=== PATIENT | female | born 1950 | race Caucasian/White ===

== ENCOUNTER 2021-03-29 15:57 | Inpatient (IN) | payer MEDICARE, BC ==
[2021-03-29 16:03] VITALS: BMI 29.3
[2021-03-29] MEDS ORDERED: Calcium Carbonate 500 MG ChewTAB PO PRN (17:19)
[2021-03-29] MEDS ORDERED: Acetaminophen 325 MG TAB PO PRN (17:19)
[2021-03-29] MEDS ORDERED: Zolpidem Tartrate 5 MG TAB PO PRN (17:19)
[2021-03-29] MEDS ORDERED: Piperacillin/Tazobactam 3.375 GM in Sodium Chloride 0.9% 100 ML IVPB SCH ×2 (18:00→19:00)
[2021-03-29] MEDS: traMADol HCl 50 MG TAB PO PRN (18:25)
[2021-03-29] MEDS: Vancomycin 1.5 GRAM/300 ML BAG 1.5 GM in Premix Bag 1 BAG IVPB SCH (20:16)
[2021-03-29] MEDS: Famotidine 20 MG TAB PO SCH (20:20)
[2021-03-29] MEDS ORDERED: Sodium Chloride 0.9% 100 ML ONE (23:54)
[2021-03-29] MEDS: Piperacillin/Tazobactam 3.375 GM in Sodium Chloride 0.9% 100 ML IVPB SCH (23:58)
[2021-03-30] MEDS: traMADol HCl 50 MG TAB PO PRN ×3 (04:25→15:57)
[2021-03-30] MEDS: Piperacillin/Tazobactam 3.375 GM in Sodium Chloride 0.9% 100 ML IVPB SCH ×2 (06:31→15:50)
[2021-03-30] MEDS: metFORMIN 500 MG TAB PO SCH ×2 (10:47→15:57)
[2021-03-30] MEDS: Amlodipine 5 MG TAB PO SCH (10:47)
[2021-03-30] MEDS: Famotidine 20 MG TAB PO SCH ×2 (10:48→21:26)
[2021-03-30] MEDS: Lisinopril 20 MG TAB PO SCH (10:48)
[2021-03-30] MEDS: Enoxaparin Sodium 30 MG/0.3 ML SYRINGE SC SCH (10:50)
[2021-03-30] MEDS: Fluticasone Propionate Nasal Spray 16 gm Bottle NASAL SCH (13:43)
[2021-03-30 14:29] LABS: SARS-CoV-2 PCR by NAA Not Detected (NotDetected)
[2021-03-30 17:19] LABS: #Eosinphils 0.3 10x3/uL (0.0-0.5); #Monocytes 0.5 10x3/uL (0.0-1.1); #Neutrophils 4.6 10x3/uL (1.5-8.4); %Basophils 0.6 % (0.0-2.0); %Eosinophils 4.6 % (0.0-6.0); %Lymphocytes 16.9 % (18.0-47.0); %Monocytes 7.3 % (0.0-10.0); %Neutrophils 70.1 % (40.0-75.0); Hemoglobin 11.2 g/dL (12.0-15.5); Mean Corpuscular HGB CONC 31.8 g/dL (32.0-36.0); Mean Corpuscular Hemoglobin 29.5 pg (27.0-33.0); Mean Corpuscular Volume 92.6 fl (81.6-98.3); Mean Platelet Volume 9.8 fl (7.4-10.4); Platelet Count 206 10x3/uL (150-450); RBC Distribution Width 12.9 % (11.5-14.5); White Blood Cell (WBC) Count 6.6 10x3/uL (3.5-10.5)
[2021-03-30] MEDS: diphenhydrAMINE 25 MG CAP PO PRN (18:02)
[2021-03-30] MEDS: Vancomycin 1.5 GRAM/300 ML BAG 1.5 GM in Premix Bag 1 BAG IVPB SCH (21:25)
[2021-03-30] MEDS: Clindamycin/D5W 900 MG in Premix Bag 1 BAG IVPB SCH (23:09)
[2021-03-31] MEDS: Clindamycin/D5W 900 MG in Premix Bag 1 BAG IVPB SCH ×3 (06:14→22:35)
[2021-03-31] MEDS ORDERED: Fentanyl 100 MCG/2 ML VIAL ONE ×2 (08:16→09:59)
[2021-03-31] MEDS ORDERED: Midazolam HCl 2 mg/2 ml Vial ONE (08:16)
[2021-03-31] MEDS ORDERED: PROPOFOL 20 ML ONE (08:16)
[2021-03-31] MEDS ORDERED: Ondansetron PF 4 MG/2 ML Vial ONE (08:18)
[2021-03-31] MEDS ORDERED: Dexamethasone 20 MG/5 ML VIAL ONE (08:18)
[2021-03-31] MEDS ORDERED: Lidocaine 1% PF 5 ML VIAL ONE (08:18)
[2021-03-31] MEDS ORDERED: Promethazine HCl 25 MG/ML VIAL IM PRN (09:20)
[2021-03-31] MEDS ORDERED: Ondansetron HCl/PF 4 MG/2 ML Vial IVP PRN (09:20)
[2021-03-31] MEDS ORDERED: Promethazine HCl 25 MG/ML VIAL IVPB PRN (09:20)
[2021-03-31] MEDS ORDERED: ePHEDrine Sulfate 50 MG/10 ML VIAL ONE (09:28)
[2021-03-31] MEDS: metFORMIN 500 MG TAB PO SCH ×2 (10:56→15:41)
[2021-03-31] MEDS: Famotidine 20 MG TAB PO SCH ×2 (10:56→20:40)
[2021-03-31] MEDS: Amlodipine 5 MG TAB PO SCH (10:56)
[2021-03-31] MEDS: Enoxaparin Sodium 30 MG/0.3 ML SYRINGE SC SCH (10:57)
[2021-03-31] MEDS: Fluticasone Propionate Nasal Spray 16 gm Bottle NASAL SCH (10:58)
[2021-03-31] MEDS: Lisinopril 20 MG TAB PO SCH (10:58)
[2021-03-31] MEDS: traMADol HCl 50 MG TAB PO PRN ×2 (16:37→20:48)
[2021-03-31] MEDS: Vancomycin 1.5 GRAM/300 ML BAG 1.5 GM in Premix Bag 1 BAG IVPB SCH (20:40)
[2021-04-01] MEDS: Clindamycin/D5W 900 MG in Premix Bag 1 BAG IVPB SCH ×3 (05:45→23:13)
[2021-04-01] MEDS: traMADol HCl 50 MG TAB PO PRN (06:11)
[2021-04-01] MEDS: Famotidine 20 MG TAB PO SCH ×2 (08:50→20:19)
[2021-04-01] MEDS: Lisinopril 20 MG TAB PO SCH (08:50)
[2021-04-01] MEDS: Fluticasone Propionate Nasal Spray 16 gm Bottle NASAL SCH (08:51)
[2021-04-01] MEDS: Enoxaparin Sodium 30 MG/0.3 ML SYRINGE SC SCH (08:51)
[2021-04-01] MEDS: Amlodipine 5 MG TAB PO SCH (08:51)
[2021-04-01] MEDS: metFORMIN 500 MG TAB PO SCH ×2 (08:51→15:37)
[2021-04-01] MEDS: diphenhydrAMINE 25 MG CAP PO PRN (20:19)
[2021-04-01] MEDS: VANCOMYCIN 1.75 GM/350 ML BAG 1.75 GM in Premix Bag 1 BAG IVPB SCH ×2 (20:21→20:25)
[2021-04-02] MEDS: Clindamycin/D5W 900 MG in Premix Bag 1 BAG IVPB SCH ×3 (05:46→22:48)
[2021-04-02] MEDS: Lisinopril 20 MG TAB PO SCH (10:05)
[2021-04-02] MEDS: Amlodipine 5 MG TAB PO SCH (10:05)
[2021-04-02] MEDS: metFORMIN 500 MG TAB PO SCH ×2 (10:05→17:58)
[2021-04-02] MEDS: Enoxaparin Sodium 30 MG/0.3 ML SYRINGE SC SCH (10:05)
[2021-04-02] MEDS: Famotidine 20 MG TAB PO SCH ×2 (10:05→20:19)
[2021-04-02] MEDS: Fluticasone Propionate Nasal Spray 16 gm Bottle NASAL SCH (10:06)
[2021-04-02] MEDS: traMADol HCl 50 MG TAB PO PRN (14:21)
[2021-04-02] MEDS: VANCOMYCIN 1.75 GM/350 ML BAG 1.75 GM in Premix Bag 1 BAG IVPB SCH (20:19)
[2021-04-02] MEDS: diphenhydrAMINE 25 MG CAP PO PRN (20:29)
[2021-04-03] MEDS: Clindamycin/D5W 900 MG in Premix Bag 1 BAG IVPB SCH ×3 (05:51→21:24)
[2021-04-03] MEDS: traMADol HCl 50 MG TAB PO PRN ×2 (11:34→23:49)
[2021-04-03] MEDS: metFORMIN 500 MG TAB PO SCH ×2 (11:34→18:06)
[2021-04-03] MEDS: Amlodipine 5 MG TAB PO SCH (11:35)
[2021-04-03] MEDS: Lisinopril 20 MG TAB PO SCH (11:35)
[2021-04-03] MEDS: Famotidine 20 MG TAB PO SCH ×2 (11:36→21:23)
[2021-04-03] MEDS: Fluticasone Propionate Nasal Spray 16 gm Bottle NASAL SCH (11:37)
[2021-04-03] MEDS: Enoxaparin Sodium 30 MG/0.3 ML SYRINGE SC SCH (11:37)
[2021-04-03 19:18] LABS: Vancomycin, Trough 15.9 ug/mL
[2021-04-03] MEDS ORDERED: Vancomycin 1.5 GRAM/300 ML BAG 1.5 GM in Premix Bag 1 BAG IVPB SCH (21:00)
[2021-04-03] MEDS: diphenhydrAMINE 25 MG CAP PO PRN (21:23)
[2021-04-03] MEDS: VANCOMYCIN 1.75 GM/350 ML BAG 1.75 GM in Premix Bag 1 BAG IVPB SCH (21:38)
[2021-04-04] MEDS: Clindamycin/D5W 900 MG in Premix Bag 1 BAG IVPB SCH (06:01)
[2021-04-04] MEDS: Lisinopril 20 MG TAB PO SCH (08:51)
[2021-04-04] MEDS: metFORMIN 500 MG TAB PO SCH (08:52)
[2021-04-04] MEDS: Amlodipine 5 MG TAB PO SCH (08:52)
[2021-04-04] MEDS: Famotidine 20 MG TAB PO SCH (08:53)
[2021-04-04 08:56] VITALS: BP 110/68
[2021-04-04] MEDS: Fluticasone Propionate Nasal Spray 16 gm Bottle NASAL SCH (09:51)
[2021-04-04] MEDS: Enoxaparin Sodium 30 MG/0.3 ML SYRINGE SC SCH (09:51)
[2021-04-04 12:21] VITALS: TEMP 97.1
== END 2021-04-04 12:25 | disposition home or self-care (01) | DRG 580 ==
LOC: CSHTELE 15:57
PROVIDERS: ADMIT Obstetrics & Gynecology; ATTEND Obstetrics & Gynecology
PROC: 0U9M0ZZ Drainage of Vulva, Open Approach (ICD-10-PCS; principal; 2021-03-31)
DX: L73.2 Hidradenitis suppurativa (principal); N76.4 Abscess of vulva; Z20.822 Contact with and (suspected) exposure to COVID-19; E11.628 Type 2 diabetes mellitus with other skin complications; L02.31 Cutaneous abscess of buttock; L03.317 Cellulitis of buttock; I10 Essential (primary) hypertension; N76.2 Acute vulvitis; K21.9 Gastro-esophageal reflux disease without esophagitis; E78.5 Hyperlipidemia, unspecified; Z88.8 Allergy status to other drugs, medicaments and biological substances; Z79.82 Long term (current) use of aspirin; Z79.899 Other long term (current) drug therapy
CPT/HCPCS: 36415; 36416; 80202; 82565; 84520; 85025; 87070; 87205; J1100; J1650; J2250; J2405; J2543; J2704; J3010; J3370; J3490; U0003; U0005

== ENCOUNTER 2021-05-31 14:32 | Inpatient (IN) | payer MEDICARE, BC ==
[2021-05-31] MEDS ORDERED: Piperacillin/Tazobactam 3.375 GM VIAL ONE (17:44)
[2021-05-31 17:51] LABS: #Eosinphils 0.2 10x3/uL (0.0-0.5); #Monocytes 0.9 10x3/uL (0.0-1.1); #Neutrophils 7.8 10x3/uL (1.5-8.4); %Basophils 0.4 % (0.0-2.0); %Eosinophils 2.1 % (0.0-6.0); %Lymphocytes 15.8 % (18.0-47.0); %Monocytes 8.2 % (0.0-10.0); %Neutrophils 73.2 % (40.0-75.0); Hemoglobin 12.6 g/dL (12.0-15.5); Mean Corpuscular HGB CONC 31.7 g/dL (32.0-36.0); Mean Corpuscular Volume 91.5 fl (81.6-98.3); Mean Platelet Volume 10.1 fl (7.4-10.4); Platelet Count 236 10x3/uL (150-450); RBC Distribution Width 13.3 % (11.5-14.5); Red Blood Cell (RBC) Count 4.35 10x6/uL (3.90-5.03); White Blood Cell (WBC) Count 10.7 10x3/uL (3.5-10.5)
[2021-05-31 17:56] LABS: Anion Gap 13 mmol/L (10-20); BUN (Urea Nitrogen) 15 mg/dL (9.8-20.1); Calc. Creatinine Clearance 0 mL/min (70-130); Calcium 9.1 mg/dL (7.8-10.44); Carbon Dioxide 27 mmol/L (23-31); Chloride 105 mmol/L (98-107); Glucose 91 mg/dL (80-115); Potassium 3.2 mmol/L (3.5-5.1); Sodium 142 mmol/L (136-145)
[2021-05-31 17:57] LABS: ALT (SGPT) 13 U/L (8-55); AST (SGOT) 15 U/L (5-34); Albumin 4.4 g/dL (3.4-4.8); Alkaline Phosphatase 77 U/L (40-110); Bilirubin, Total 0.8 mg/dL (0.2-1.2); Globulin 3.2 g/dL (2.4-3.5); Protein, Total 7.6 g/dL (5.8-8.1)
[2021-05-31] MEDS ORDERED: Meropenem 500 MG VIAL ONE ×2 (18:33→18:36)
[2021-05-31] MEDS ORDERED: Potassium Chloride 20 MEQ TAB ONE (20:22)
[2021-05-31 20:33] LABS: Bilirubin Neg (Negative); Blood, Urine 250 (Negative); Clarity Cloudy (Clear); Glucose, Urine (Dipstick) Normal (Negative); Ketone, Urine 15 mg/dL (Negative); Leukocyte 500 (Negative); Nitrite Negative (Negative); Protein, Urine (Dipstick) 100 mg/dl (Neg-Trace); Urobilinogen Normal mg/dL (Less than 2); pH, Urine 6.5 (5.0-9.0)
[2021-05-31 20:33] LABS: SARS-CoV-2 NAA Rapid Test Not Detected (NotDetected)
[2021-05-31 20:41] LABS: Squamous Epithelial 0-3 HPF (0-3); WBC/HPF Greater than 50 HPF (0-3)
[2021-05-31 20:43] LABS: Bacteria/HPF Rare-Few HPF (None Seen)
[2021-05-31 22:39] VITALS: BMI 33.3
[2021-05-31] MEDS ORDERED: Morphine 4 MG/ML VIAL SLOW IVP SCH (23:00)
[2021-05-31] MEDS ORDERED: Acetaminophen 325 MG TAB PO PRN (23:20)
[2021-05-31] MEDS ORDERED: Ondansetron PF 4 MG/2 ML Vial IVP PRN (23:20)
[2021-05-31] MEDS ORDERED: Sodium Chloride 0.9% 1,000 ML IV SCH (23:30)
[2021-06-01] MEDS ORDERED: Morphine 4 MG/ML VIAL SLOW IVP PRN (00:38)
[2021-06-01] MEDS ORDERED: Senokot S 8.6-50 MG TAB PO PRN (00:38)
[2021-06-01] MEDS ORDERED: Potassium Chloride 20 MEQ TAB PO SCH (00:45)
[2021-06-01] MEDS: Meropenem 1 GM in Sodium Chloride 0.9% 100 ML IVPB SCH ×3 (03:00→18:14)
[2021-06-01] MEDS ORDERED: Meropenem 1 GM in Sodium Chloride 0.9% 100 ML IVPB SCH ×2 (03:00)
[2021-06-01 04:18] LABS: #Eosinphils 0.1 10x3/uL (0.0-0.5); #Monocytes 0.7 10x3/uL (0.0-1.1); #Neutrophils 6.4 10x3/uL (1.5-8.4); %Basophils 0.2 % (0.0-2.0); %Eosinophils 0.7 % (0.0-6.0); %Lymphocytes 14.6 % (18.0-47.0); %Monocytes 8.7 % (0.0-10.0); %Neutrophils 75.3 % (40.0-75.0); Hemoglobin 10.8 g/dL (12.0-15.5); Mean Corpuscular Hemoglobin 29.3 pg (27.0-33.0); Mean Corpuscular Volume 91.3 fl (81.6-98.3); Mean Platelet Volume 10.3 fl (7.4-10.4); Platelet Count 181 10x3/uL (150-450); RBC Distribution Width 13.4 % (11.5-14.5); Red Blood Cell (RBC) Count 3.69 10x6/uL (3.90-5.03); White Blood Cell (WBC) Count 8.6 10x3/uL (3.5-10.5)
[2021-06-01 04:19] LABS: Anion Gap 16 mmol/L (10-20); BUN (Urea Nitrogen) 12 mg/dL (9.8-20.1); Calc. Creatinine Clearance 89 mL/min (70-130); Calcium 8.1 mg/dL (7.8-10.44); Carbon Dioxide 18 mmol/L (23-31); Chloride 110 mmol/L (98-107); Glucose 165 mg/dL (80-115); Magnesium 1.6 mg/dL (1.6-2.6); Sodium 140 mmol/L (136-145)
[2021-06-01] MEDS: Enoxaparin Sodium 40 MG/0.4 ML SYRINGE SC SCH (10:31)
[2021-06-01] MEDS: metFORMIN 500 MG TAB PO SCH ×2 (10:31→18:14)
[2021-06-01] MEDS: Acetaminophen 325 MG TAB PO PRN (12:02)
[2021-06-01] MEDS ORDERED: Atorvastatin Calcium 40 MG TAB PO SCH (21:00)
[2021-06-01] MEDS: Atorvastatin Calcium 20 MG TAB PO SCH (22:00)
[2021-06-01] MEDS: Latanoprost 0.005% Ophth Soln 2.5 ml Bottle R EYE SCH (22:00)
[2021-06-01] MEDS: Aspirin 81 mg Enteric Coated Tablet PO SCH (22:00)
[2021-06-02] MEDS: Acetaminophen 325 MG TAB PO PRN ×3 (01:27→20:37)
[2021-06-02] MEDS: Meropenem 1 GM in Sodium Chloride 0.9% 100 ML IVPB SCH ×3 (03:39→19:25)
[2021-06-02 03:46] LABS: #Eosinphils 0.2 10x3/uL (0.0-0.5); #Monocytes 0.6 10x3/uL (0.0-1.1); #Neutrophils 3.6 10x3/uL (1.5-8.4); %Basophils 0.7 % (0.0-2.0); %Lymphocytes 20.6 % (18.0-47.0); %Monocytes 11.1 % (0.0-10.0); %Neutrophils 64.2 % (40.0-75.0); Hemoglobin 10.9 g/dL (12.0-15.5); Mean Corpuscular HGB CONC 32.6 g/dL (32.0-36.0); Mean Corpuscular Hemoglobin 29.6 pg (27.0-33.0); Mean Corpuscular Volume 90.8 fl (81.6-98.3); Mean Platelet Volume 9.6 fl (7.4-10.4); Platelet Count 180 10x3/uL (150-450); RBC Distribution Width 13.6 % (11.5-14.5); Red Blood Cell (RBC) Count 3.68 10x6/uL (3.90-5.03); White Blood Cell (WBC) Count 5.7 10x3/uL (3.5-10.5)
[2021-06-02 03:54] LABS: Anion Gap 12 mmol/L (10-20); BUN (Urea Nitrogen) 10 mg/dL (9.8-20.1); Calc. Creatinine Clearance 92 mL/min (70-130); Calcium 8.4 mg/dL (7.8-10.44); Carbon Dioxide 24 mmol/L (23-31); Chloride 108 mmol/L (98-107); Glucose 122 mg/dL (80-115); Sodium 140 mmol/L (136-145)
[2021-06-02] MEDS: Enoxaparin Sodium 40 MG/0.4 ML SYRINGE SC SCH (08:24)
[2021-06-02] MEDS: metFORMIN 500 MG TAB PO SCH ×2 (08:24→17:38)
[2021-06-02] MEDS: Amlodipine 5 MG TAB PO SCH (08:25)
[2021-06-02] MEDS ORDERED: hydrALAZINE 20 MG/ML VIAL SLOW IVP PRN (11:07)
[2021-06-02] MEDS ORDERED: Cepastat Lozenges 1 LOZ PO PRN (11:07)
[2021-06-02] MEDS ORDERED: Ondansetron ODT 4 MG TAB PO PRN (11:07)
[2021-06-02] MEDS ORDERED: Artificial Tear Sol 15 ML BOT EA EYE PRN (11:07)
[2021-06-02] MEDS ORDERED: Loperamide HCl 2 MG CAP PO PRN (11:07)
[2021-06-02] MEDS ORDERED: Hydrocerin (Eucerin) Cream 120 gm Jar TOP PRN (11:07)
[2021-06-02] MEDS ORDERED: Calcium Carbonate 500 MG ChewTAB PO PRN (11:07)
[2021-06-02] MEDS ORDERED: Ondansetron PF 4 MG/2 ML Vial IVP PRN (11:07)
[2021-06-02] MEDS ORDERED: Loratadine 10 MG TAB PO PRN (11:07)
[2021-06-02] MEDS ORDERED: GUAIFENESIN SF SOLN 200 MG/10 ML UDCUP PO PRN (11:07)
[2021-06-02] MEDS ORDERED: Famotidine 20 MG TAB PO SCH (11:45)
[2021-06-02] MEDS: Fluticasone Propionate Nasal Spray 16 gm Bottle NASAL SCH (13:12)
[2021-06-02] MEDS: Aspirin 81 mg Enteric Coated Tablet PO SCH (20:37)
[2021-06-02] MEDS: Famotidine 20 MG TAB PO SCH (20:37)
[2021-06-02] MEDS: Latanoprost 0.005% Ophth Soln 2.5 ml Bottle R EYE SCH (20:37)
[2021-06-02] MEDS: Atorvastatin Calcium 20 MG TAB PO SCH (20:37)
[2021-06-03] MEDS: Meropenem 1 GM in Sodium Chloride 0.9% 100 ML IVPB SCH ×3 (02:36→23:17)
[2021-06-03] MEDS: metFORMIN 500 MG TAB PO SCH ×2 (09:24→18:49)
[2021-06-03] MEDS: Amlodipine 5 MG TAB PO SCH (09:24)
[2021-06-03] MEDS: Famotidine 20 MG TAB PO SCH ×2 (09:24→23:18)
[2021-06-03] MEDS: Enoxaparin Sodium 40 MG/0.4 ML SYRINGE SC SCH (09:25)
[2021-06-03] MEDS: Fluticasone Propionate Nasal Spray 16 gm Bottle NASAL SCH (14:23)
[2021-06-03] MEDS: Aspirin 81 mg Enteric Coated Tablet PO SCH (23:18)
[2021-06-03] MEDS: Atorvastatin Calcium 20 MG TAB PO SCH (23:18)
[2021-06-03] MEDS: Latanoprost 0.005% Ophth Soln 2.5 ml Bottle R EYE SCH (23:19)
[2021-06-04] MEDS: Meropenem 1 GM in Sodium Chloride 0.9% 100 ML IVPB SCH ×2 (02:00→21:36)
[2021-06-04] MEDS: Amlodipine 5 MG TAB PO SCH (09:10)
[2021-06-04] MEDS: Famotidine 20 MG TAB PO SCH (09:11)
[2021-06-04] MEDS: metFORMIN 500 MG TAB PO SCH (09:11)
[2021-06-04] MEDS: Fluticasone Propionate Nasal Spray 16 gm Bottle NASAL SCH (09:27)
[2021-06-04] MEDS: Enoxaparin Sodium 40 MG/0.4 ML SYRINGE SC SCH (09:27)
[2021-06-04 11:23] VITALS: BP 120/85; TEMP 96.4
== END 2021-06-04 13:00 | disposition home or self-care (01) | DRG 872 ==
LOC: CSHERS 14:32 → INTOOBSV 22:04 → CSHTELE 22:04 → OBSVTOIN 22:04 → UNDODISIN 06-04 13:00
PROVIDERS: ADMIT Family Medicine; ATTEND Internal Medicine
DX: A41.51 Sepsis due to Escherichia coli [E. coli] (principal); N10 Acute pyelonephritis; Z16.12 Extended spectrum beta lactamase (ESBL) resistance; Z20.822 Contact with and (suspected) exposure to COVID-19; E87.6 Hypokalemia; E78.5 Hyperlipidemia, unspecified; E11.9 Type 2 diabetes mellitus without complications; E66.9 Obesity, unspecified; H40.9 Unspecified glaucoma; I10 Essential (primary) hypertension; K21.9 Gastro-esophageal reflux disease without esophagitis; Z87.440 Personal history of urinary (tract) infections; Z79.899 Other long term (current) drug therapy; Z79.82 Long term (current) use of aspirin; Z79.84 Long term (current) use of oral hypoglycemic drugs; Z88.1 Allergy status to other antibiotic agents; Z88.6 Allergy status to analgesic agent; Z68.33 Body mass index [BMI] 33.0-33.9, adult; Z90.710 Acquired absence of both cervix and uterus; Z86.718 Personal history of other venous thrombosis and embolism
CPT/HCPCS: 36415; 36416; 80048; 80053; 81003; 81015; 83605; 83735; 85025; 87040; 96365; 96375; G0378; J1650; J2185; J2270; J2543; J3490; J7050; U0002

== ENCOUNTER 2022-06-16 14:20 | Emergency (ER) | payer MEDICARE, BC | END 2022-06-16 15:53 | disposition home or self-care (01) | LOC: CSHERS 14:20 | DX: K61.0 Anal abscess (principal); E11.9 Type 2 diabetes mellitus without complications; E78.5 Hyperlipidemia, unspecified; K21.9 Gastro-esophageal reflux disease without esophagitis; I10 Essential (primary) hypertension | CPT/HCPCS: 99283 ==